=== PATIENT | female | born 1975 | race American Indian/Alaskan Native ===

== ENCOUNTER 2017-12-24 17:01 | Emergency (ER) | payer OTHER ==
[2017-12-24 17:21] VITALS: BMI 25.0
[2017-12-24] MEDS ORDERED: Naproxen 550 mg Tab PO STA (17:21)
[2017-12-24 17:34] VITALS: TEMP 97.8
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
[2017-12-24 19:46] VITALS: BP 142/76; PULSE 69; RESP 18; O2SAT 99
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
== END 2017-12-24 19:40 | disposition home or self-care (01) ==
LOC: ED 17:01
DX: S43.402A Unspecified sprain of left shoulder joint, initial encounter (principal); S20.212A Contusion of left front wall of thorax, initial encounter; V49.49XA Driver injured in collision with other motor vehicles in traffic accident, initial encounter; Y92.414 Local residential or business street as the place of occurrence of the external cause; M25.552 Pain in left hip